=== PATIENT | female | born 2005 | race Caucasian/White ===

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

== ENCOUNTER 2025-05-25 12:18 | Outpatient (CLI) | payer OTHER, BC ==
[2025-05-25 13:04] VITALS: BP 124/83; PULSE 93; RESP 16; TEMP 98.3
[2025-05-25 13:11] LABS: Bacteria,Urine Moderate /hpf; Bilirubin,Urine Negative (Negative); Blood,Urine Negative (Negative); Color,Urine Colorless; Glucose,Urine (UA) Negative (Negative); Ketones,Urine Negative (Negative); Leukocyte Esterase,Urine Moderate (Negative); Mucus,Urine Rare /hpf; Nitrite,Urine Negative (Negative); PH, Urine 6.5 (5.0-8.0); Protein,Urine Negative (Negative); Specific Gravity,Urine 1.011 (1.001-1.035); Squamous Epithelial Cell,Urine <1 /hpf (0-4); Urobilinogen,Urine <2.0 mg/dL (<2.0); WBC,Urine 3 /hpf (0-5)
[2025-05-25 13:20] LABS: Basophils # (A) 0.05 10*3/uL (0.00-0.10); Basophils % (A) 0.4 %; Eosinophils # (A) 0.09 10*3/uL (0.04-0.35); Eosinophils % (A) 0.8 %; HCT 35.8 % (37.2-46.3); HGB 12.5 g/dL (12.0-15.0); Lymphocytes # (A) 1.72 10*3/uL (0.90-5.00); Lymphocytes % (A) 14.5 %; MCH 31.1 pg (27.0-32.0); MCHC 34.9 g/dL (32.0-37.0); MCV 89.1 fL (80.0-97.0); Monocytes # (A) 0.95 10*3/uL (0.20-1.00); Monocytes % (A) 8.0 %; Neutrophils # (A) 8.98 10*3/uL (1.80-7.70); Neutrophils % (A) 75.7 %; Platelet Count 263 10*3/uL (140-440); RBC 4.02 10*6/uL (4.10-5.20); RDW 12.9 % (11.5-14.5); WBC 11.86 10*3/uL (4.50-10.00)
[2025-05-25 13:29] LABS: Protein/Creatinine Ratio,Urine 0.151
[2025-05-25 13:42] LABS: ALT 16 U/L (4-34); AST 22 U/L (14-36); African American GFR (CKD) >90 (>60 ml/min/1.73 sqM); Blood Urea Nitrogen 6 mg/dL (7-17); LDH 179 U/L (120-246); Non-African American GFR(CKD) >90 (>60 ml/min/1.73 sqM); Uric Acid 4.9 mg/dL (3.7-7.4)
--- NOTE | 2025-05-27 13:40 | P.MSEPDOC ---
Presenting Problems - Arrival Data Date of Arrival on Unit: 05/25/25 Time of Arrival on Unit: 12:18 Mode of Transport: Ambulatory - Complaint OB-Reason for Admission/Chief Complaint: PIH Medical History - Information : 1 Para: 0 Term: 0 : 0 Abortions: Spontaneous or Elective: 0 Number of Living Children: 0 - Gestational Age Gestational Age by BRIAN (wks/days): 38 Weeks and 1 Days Review of Systems - Review of Systems Constitutional: No problems, Recent weight loss Breast: No problems ENT: No problems Cardiovascular: No problems Respiratory: No problems Gastrointestinal: No problems Genitourinary: No problems Musculoskeletal: No problems Neurological: No problems Skin: No problems Vital Signs - Temperature Temperature: 98.3 F Temperature Source: Temporal Artery Scan - Pulse Right Brachial Pulse Rate: 93 Pulse Assessment Method: Automatic Cuff - Respirations Respiratory Rate: 16 Oxygen Delivery Method: Room Air O2 Sat by Pulse Oximetry: 97 - Blood Pressure Right Arm Sitting Blood Pressure: 124/83 Blood Pressure Mean: 96 Blood Pressure Source: Automatic Cuff Medical Screen Scoring - Uterine Contractions Frequency From (mins): 3 Frequency To (mins): 4 Duration From (seconds): 60 Duration To (seconds): 70 Intensity: Moderate Resting: Soft to palpation - Assessment - Baby A Baseline FHR: 120 Heart Rate - NICHD Category: Category I (Normal) NST: Reactive Physician Notification - Physician Notified Physician Notified Date: 05/25/25 Physician Notified Time: 13:58 Physician: Sandy Guzman Order Received: Yes Maternal Triage Index - Maternal Triage Index Presenting for scheduled procedure w/no complaint: No - Stat/Priority 1 Stat Priority 1: No - Urgent/Priority 2 Urgent Priority 2: No - Prompt/Priority 3 Prompt Priority 3: No - Non-Urgent/Priority 4 Non-Urgent Priority 4: Yes Criteria Met for Priority 4: 38.1 Pih work up Disposition - Disposition OB Disposition: Triage, Discharge to home, Written follow up instructions rev iewed Discharge Date: 05/25/25 Discharge Time: 14:05 I agree with the RN Medical Screening Exam: Yes Physician's MSE Comment: I have neither seen nor examined the patient Case reviewed; plan agreed upon as documented in EMR&OBIX.: Yes Diagnosis: GESTATIONAL HTN W/O SIGNIFICANT PROTEINURIA, THIRD TRIMESTER
== END 2025-05-25 14:05 | disposition home or self-care (01) ==
LOC: FBPOP 12:18
PROVIDERS: ATTEND Obstetrics & Gynecology
DX: O13.3 Gestational [pregnancy-induced] hypertension without significant proteinuria, third trimester (principal); Z3A.38 38 weeks gestation of pregnancy
CPT/HCPCS: 59025; 81001; 82565; 82570; 83615; 84156; 84450; 84460; 84520; 84550; 85025

== ENCOUNTER 2025-05-25 22:24 | Inpatient (IN) | payer BC, OTHER ==
[2025-05-25] MEDS ORDERED: CARBOPROST TROMETHAMINE 250 MCG/ML 1 ML AMP IM PRN (23:55)
[2025-05-25] MEDS ORDERED: OXYTOCIN 10 UNIT/ML 1 ML VIAL IM PRN (23:55)
[2025-05-25] MEDS ORDERED: METHYLERGONOVINE 0.2 MG/ML 1 ML AMP IM PRN (23:55)
[2025-05-25] MEDS ORDERED: TRANEXAMIC 1,000 MG/100ML-NACL 1,000 MG in EMPTY BAG 1 BAG IV PRN (23:55)
[2025-05-25] MEDS ORDERED: TERBUTALINE 1 MG/ML VIAL SQ PRN (23:55)
[2025-05-26 00:14] VITALS: RESP 16
[2025-05-26] MEDS: LACTATED RINGERS 1,000 ML IV SCH (00:15)
[2025-05-26] MEDS: OXYTOCIN 30 UNITS/500 ML NS 30 UNIT in SALINE 1 500ML.BAG IV SCH (00:34)
[2025-05-26 00:38] LABS: Basophils # (A) 0.04 10*3/uL (0.00-0.10); Basophils % (A) 0.3 %; Eosinophils # (A) 0.09 10*3/uL (0.04-0.35); Eosinophils % (A) 0.7 %; HCT 32.9 % (37.2-46.3); HGB 11.8 g/dL (12.0-15.0); Lymphocytes # (A) 2.00 10*3/uL (0.90-5.00); Lymphocytes % (A) 15.5 %; MCH 32.1 pg (27.0-32.0); MCHC 35.9 g/dL (32.0-37.0); MCV 89.4 fL (80.0-97.0); Monocytes # (A) 1.04 10*3/uL (0.20-1.00); Monocytes % (A) 8.1 %; Neutrophils # (A) 9.66 10*3/uL (1.80-7.70); Neutrophils % (A) 74.9 %; Platelet Count 242 10*3/uL (140-440); RBC 3.68 10*6/uL (4.10-5.20); RDW 12.6 % (11.5-14.5); WBC 12.89 10*3/uL (4.50-10.00)
--- NOTE | 2025-05-26 01:57 | P.HPOB ---
History of Present Illness H&P Date: 05/26/25 Chief Complaint: Contractions Ms. Rob is a 19 year old at 38 weeks and 2 day gestation with EDC of 06/07/2025 who presented to triage with regular uterine contractions and elevated blood pressures. The patient also complains of a headache at this time, for which she has not yet had any medication. She had previously been to triage the day before, sent from the office for elevated blood pressures and PIH work-up. At that time, BPs were normal in triage and PIH labs were within normal limits. The patient did make cervical change from /-3 to /-3. Mild-range blood pressures continued during this time. The decision is made to induce for gestational hypertension. The fetus is estimated to weigh in the 63%ile for weight based on a 32 week growth US. work-up: Blood type O positive, antibody screen negative, rubella immune, VDRL non-reactive, HBsAg negative, HIV negative, HCV non-reactive, gonorrhea negative, chlamydia negative, 1 hour GTT wnl, GBS negative. s/p TDap. Past Medical History Past Medical History: No Reported History Additional Past Medical History / Comment(s): heart murmur, "thick heart muscle" History of Any Multi-Drug Resistant Organisms: None Reported Past Surgical History: No Surgical Hx Reported Past Anesthesia/Blood Transfusion Reactions: No Reported Reaction Past Psychological History: No Psychological Hx Reported Smoking Status: Never smoker Past Alcohol Use History: None Reported Past Drug Use History: None Reported Medications and Allergies Home Medications Medication Instructions Recorded Confirmed Type Aspirin 81 mg PO DAILY 05/25/25 05/25/25 History Calcium Carbonate [Tums] 500 mg PO TID 05/25/25 05/25/25 History Vit No.179/Iron/Folic 1 tab PO DAILY 05/25/25 05/25/25 History [ Tablet] Allergies Allergy/AdvReac Type Severity Reaction Status Date / Time No Known Allergies Allergy Verified 05/25/25 22:27 Exam Vital Signs Temp Pulse Resp BP Pulse Ox 05/25/25 23:54 97.6 F 90 16 141/94 97 Intake and Output 05/25/25 05/25/25 05/26/25 14:59 22:59 06:59 Other: Weight 85.275 kg 85.275 kg Focused physical exam is performed. This is a healthy-appearing in no apparent distress. Breathing is non-labored. Abdomen is gravid and non-tender. Cervical exam is 2/70/-3. AROM is undertaken with clear fluid noted. Extremities non-tender and non-edematous. heart tones are Category I and tocometer is graphing contractions every 2-4 minutes. Results Result Diagrams: 05/26/25 00:26 Abnormal Lab Results - Last 24 Hours (Table) 05/26/25 Range/Units 00:26 WBC 12.89 H (4.50-10.00) 10*3/uL RBC 3.68 L (4.10-5.20) 10*6/uL Hgb 11.8 L (12.0-15.0) g/dL Hct 32.9 L (37.2-46.3) % MCH 32.1 H (27.0-32.0) pg Immature Gran # 0.06 H (0.00-0.04) 10*3/uL Neutrophils # 9.66 H (1.80-7.70) 10*3/uL Monocytes # 1.04 H (0.20-1.00) 10*3/uL Assessment and Plan Assessment: 19 year old at 38 weeks and 2 days for which labor is being augmented for gestational hypertension Plan: Admit, clear liquid diet, pitocin per protocol, epidural prn, continuous EFM and tocometer.
[2025-05-26] MEDS: ACETAMINOPHEN TAB 500 MG TAB PO STA (02:24)
[2025-05-26] MEDS: NALBUPHINE 10 MG/ML (10 ML MDV) IV PRN (03:16)
[2025-05-26] MEDS ORDERED: SODIUM CHLORIDE 0.9% 250 ML BAG ONE (07:11)
[2025-05-26] MEDS ORDERED: ROPIVACAINE 5 MG/ML 30 ML VIAL ONE (07:11)
[2025-05-26] MEDS ORDERED: fentaNYL (PF) 50 MCG/ML 5 ML AMP ONE (07:11)
[2025-05-26] MEDS: LIDOCAINE 0.5% (PF) 5 MG/ML (50 ML SDV) SQ PRN (10:11)
[2025-05-26] MEDS ORDERED: diphenhydrAMINE 25 MG CAP PO PRN (10:20)
[2025-05-26] MEDS ORDERED: BENZOCAINE/MENTHOL SPRAY 1 GM/SPRAY AEROSOL TOPICAL PRN (10:20)
[2025-05-26] MEDS ORDERED: LANOLIN CREAM 1 GM TUBE TOPICAL PRN (10:20)
[2025-05-26] MEDS ORDERED: diphenhydrAMINE 50 MG/ML 1 ML VIAL IVP PRN ×2 (10:20)
[2025-05-26] MEDS ORDERED: SIMETHICONE 80 MG CHEWABLE PO PRN (10:20)
[2025-05-26] MEDS ORDERED: HYDROCORTISONE 2.5% RECTAL CREAM 30 GM TUBE RECTAL PRN (10:20)
[2025-05-26] MEDS ORDERED: ZOLPIDEM 5 MG TAB PO PRN (10:20)
--- NOTE | 2025-05-26 10:20 | P.PROBDLV ---
Vaginal Delivery Note - . Vaginal Delivery Note: DATE OF SERVICE: 05/26/2025 PROCEDURE: Normal Vaginal Delivery ATTENDING: Dr. Sandy Guzman MD ESTIMATED BLOOD LOSS: 100 mL FINDINGS: VMI, Apgars 9/9. Weight 7 pounds and 2 ounces (3230 grams) PROCEDURE: Ms. Rob is a 19 year old at 38 weeks and 1 day presenting to labor and delivery for medical induction of labor for gestational hypertension. For further details, please review the admitting H&P. Pitocin was titrated per protocol. AROM was undertaken at 134 revealing clear amniotic fluid. The patient received epidural anesthesia per her request. The patient was completely dilated at 928. She pushed effectively with Category I FHTs. A viable male was delivered at 1002 without difficulty. The infant was placed on the maternal abdomen and bulb suctioned. The was noted to be spontaneously crying. Cord was clamped and cut after a 60-second delay. The infant was handed off to the pediatric team. Placenta was delivered whole with gentle cord traction at 1006. Oxytocin was started to facilitate uterine tone. Uterine fundus was found to be firm and below the umbilicus upon fundal massage. Thorough examination of the cervix, vagina, periurethral area, and perineum revealed a small second degree perineal laceration. The perineum was infiltrated with lidocaine and repaired with 2-0 Vicryl in the usual fashion. The patient is stable and allowed to begin the bonding process.
[2025-05-26] MEDS: IBUPROFEN 800 MG TAB PO SCH (10:40)
[2025-05-26] MEDS: ACETAMINOPHEN TAB 500 MG TAB PO SCH (17:05)
[2025-05-26] MEDS: SENNOSIDES-DOCUSATE SODIUM 1 EACH TAB PO SCH (19:45)
[2025-05-27 00:47] VITALS: TEMP 97.9
[2025-05-27 07:15] LABS: Basophils # (A) 0.04 10*3/uL (0.00-0.10); Basophils % (A) 0.3 %; Eosinophils # (A) 0.17 10*3/uL (0.04-0.35); Eosinophils % (A) 1.4 %; HCT 32.6 % (37.2-46.3); HGB 11.2 g/dL (12.0-15.0); Lymphocytes # (A) 2.03 10*3/uL (0.90-5.00); Lymphocytes % (A) 17.2 %; MCH 31.3 pg (27.0-32.0); MCHC 34.4 g/dL (32.0-37.0); MCV 91.1 fL (80.0-97.0); Monocytes # (A) 0.92 10*3/uL (0.20-1.00); Monocytes % (A) 7.8 %; Neutrophils # (A) 8.61 10*3/uL (1.80-7.70); Neutrophils % (A) 72.8 %; Platelet Count 201 10*3/uL (140-440); RBC 3.58 10*6/uL (4.10-5.20); RDW 12.9 % (11.5-14.5); WBC 11.83 10*3/uL (4.50-10.00)
[2025-05-27 09:04] VITALS: BP 129/87; PULSE 93
--- NOTE | 2025-05-27 11:54 | P.DS ---
Providers Date of admission: 05/25/25 23:51 Expected date of discharge: 05/27/25 Attending physician: Sandy Guzman MD Primary care physician: Stated None Hospital Course: Ms. Rob is a 19 year old now PPD#1 s/p after medical induction of labor for gestational hypertension. Blood pressures have been normotensive since delivery and she denies headache, blurry vision, or RUQ pain. The patient is doing well this morning and had no acute events overnight. She has no complaints this morning. She reports minimal lochia, passing flatus, voiding without difficulty, ambulating, and eating/drinking without nausea or vomiting. Infant doing well at bedside, s/p circumcision. She denies chest pain, shortness of breathing, fevers, or chills overnight. She denies pain or swelling in the legs. restrictions are reviewed with the patient including pelvic rest for 6 weeks. The patient is encouraged to call the office if she experiences any heavy bleeding, foul-smelling discharge, breast complaints, or any if she has any other concerns. She will follow up in the office in 1 week for blood pressure check. All questions are answered. Patient Condition at Discharge: Good Plan - Discharge Summary New Discharge Prescriptions: New Docusate [Colace] 100 mg PO BID PRN #60 capsule PRN Reason: Constipation No Action Vit No.179/Iron/Folic [ Tablet] 1 tab PO DAILY Calcium Carbonate [Tums] 500 mg PO TID Aspirin 81 mg PO DAILY Discharge Medication List Aspirin 81 mg PO DAILY 05/25/25 [History] Calcium Carbonate [Tums] 500 mg PO TID 05/25/25 [History] Vit No.179/Iron/Folic [ Tablet] 1 tab PO DAILY 05/25/25 [History] Docusate [Colace] 100 mg PO BID PRN #60 capsule 05/27/25 [Rx] Follow up Appointment(s)/Referral(s): Sandy Guzman MD [STAFF PHYSICIAN] - 07/12/25 1:15 pm (1 week BP check) Activity/Diet/Wound Care/Special Instructions: Instructions 1. Do not begin any exercise program for 3 weeks. 2. Do not resume sexual relations for 6 weeks or longer if uncomfortable. 3. You may take tub baths or showers at any time. 4. You may use tampons if desired after 6 weeks. 5. Keep any areas repaired with stitches clean and dry. 6. If you are not nursing, wear a good fitting, supportive bra during the day and limit fluid intake for at least 1 week to prevent breast engorgement. 7. Call the office, , within the next week to make appointment for your 6 week checkup if it has not already been made. 8. Report any of the following occurrences to the doctor promptly: a. Heavy, excessive bleeding b. Chills, fever c. Burning or frequency of urination d. Pain or redness and breasts if nursing e. Increasing pain or swelling of vulva (stitches). In addition to the above instructions, the following additional should be followed: 1. No heavy lifting or straining (exercising) until after 6 week checkup. 2. Keep abdominal incision clean and dry: You may wear a dressing if more comfortable. 3. Make office appointment for 2 weeks after delivery date. Discharge Disposition: HOME SELF-CARE
--- NOTE | 2025-05-27 13:43 | P.MSEPDOC ---
Presenting Problems - Arrival Data Date of Arrival on Unit: 05/25/25 Time of Arrival on Unit: 23:48 Mode of Transport: Ambulatory - Complaint OB-Reason for Admission/Chief Complaint: Decreased Movement, Headache, Pain, Dizziness Comment: pt presents to triage due to nausea, dizzyness, headache 5/10, heartburn, which patient took tums about an hour ago for, pelvic pressure, and stomach remained hard for over 2 hours and decrease movement, pt. states once the stomach turned hard for the 2 hours then she started getting all her symtoms the nausea, headache and dizzyness. Medical History - Information : 1 Para: 0 Term: 0 : 0 Abortions: Spontaneous or Elective: 0 Number of Living Children: 0 - Gestational Age Gestational Age by BRIAN (wks/days): 38 Weeks and 2 Days Review of Systems - Review of Systems Constitutional: No problems Breast: No problems ENT: No problems Cardiovascular: No problems Respiratory: No problems Gastrointestinal: No problems Genitourinary: No problems Musculoskeletal: No problems Neurological: Dizziness Skin: No problems Vital Signs - Temperature Temperature: 97.9 F Temperature Source: Oral - Pulse Pulse Oximetery Pulse Rate: 93 Pulse Assessment Method: Automatic Cuff - Respirations Respiratory Rate: 16 Oxygen Delivery Method: Room Air - Blood Pressure Right Arm Blood Pressure: 129/87 Blood Pressure Mean: 101 Blood Pressure Source: Automatic Cuff Medical Screen Scoring - Cervical Exam Dilation (cm): 1.5 Effacement (%): 60 Station: -3 Membranes: Intact - Uterine Contractions Frequency From (mins): 2 Frequency To (mins): 4 Duration From (seconds): 60 Duration To (seconds): 100 Intensity: Moderate Resting: Soft to palpation - Assessment - Baby A Baseline FHR: 115 Heart Rate - NICHD Category: Category I (Normal) NST: Reactive Physician Notification - Physician Notified Physician Notified Date: 05/26/25 Physician Notified Time: 23:45 Physician: Sandy Guzman New Order Received: Yes - Notification Comment Comment: orders to admit for augmentation of labor Maternal Triage Index - Maternal Triage Index Presenting for scheduled procedure w/no complaint: No - Stat/Priority 1 Stat Priority 1: No - Urgent/Priority 2 Urgent Priority 2: Yes Provider Notified: Sandy Guzman Provider Notified Time: 23:28 Criteria Met for Priority 2: 38 weeks, contrations and elevated BP Disposition - Disposition OB Disposition: Admit I agree with the RN Medical Screening Exam: Yes Case reviewed; plan agreed upon as documented in EMR&OBIX.: Yes Diagnosis: GESTATIONAL HTN W/O SIGNIFICANT PROTEINURIA, THIRD TRIMESTER
== END 2025-05-27 13:10 | disposition home or self-care (01) | DRG 807 ==
LOC: FBPOP 22:24 → 4FBP 23:51
PROVIDERS: ADMIT Obstetrics & Gynecology; ATTEND Obstetrics & Gynecology
PROC: 10E0XZZ Delivery of Products of Conception, External Approach (ICD-10-PCS; principal; 2025-05-26)
PROC: 0KQM0ZZ Repair Perineum Muscle, Open Approach (ICD-10-PCS; 2025-05-26)
PROC: 10907ZC Drainage of Amniotic Fluid, Therapeutic from Products of Conception, Via Natural or Artificial Opening (ICD-10-PCS; 2025-05-26)
DX: O13.4 Gestational [pregnancy-induced] hypertension without significant proteinuria, complicating childbirth (principal); Z37.0 Single live birth; O36.8130 Decreased fetal movements, third trimester, not applicable or unspecified; O70.1 Second degree perineal laceration during delivery; Z3A.38 38 weeks gestation of pregnancy
CPT/HCPCS: 59025; 85025; 86850; 86900; 86901; 99215